=== PATIENT | female | born 1950 | race Caucasian/White ===

== ENCOUNTER 2023-07-18 15:54 | Outpatient (OUT) | payer MEDICARE, SELFPAY | END 2023-07-18 15:55 | disposition home or self-care (01) | LOC: PST 15:56 | PROVIDERS: PCP Family Medicine; Visit Provider Surgery | DX: Z01.818 Encounter for other preprocedural examination (principal); Z86.010 Personal history of colon polyps ==

== ENCOUNTER 2023-07-25 06:51 | Day surgery (SDC) | payer MEDICARE, SELFPAY ==
[2023-07-25 07:11] VITALS: BP 136/95; PULSE 102; RESP 20; TEMP 36; O2SAT 95; BMI 30.7
[2023-07-25] MEDS: LACTATED RINGER'S SOLUTION 1,000 ML 50 ML IV (07:19)
--- NOTE | 2023-07-25 07:56 | P.GSPRC_ITS ---
Date of procedure: 07/25/23 Indications for Procedure: history of colon polyps; last colonoscopy five years ago Pre-op diagnosis: history of colon polyps Post-op diagnosis: other (colon polyp ?2 cecum 5-6 mm; colon polyp rectosigmoid junction 5 mm; diverticulosis sigmoid, descending, transverse colon multiple small and large) Procedure: colonoscopy with hot snare polyps cecum ?2 and rectosigmoid junction times one Findings: colon polyps Diverticulosis Anesthesia: MAC Surgeon: Rashaun Nance Procedure Summary: PROCEDURE: The patient was taken to the Endoscopy Suite, placed in the left lateral recumbent position, given IV sedation as above. A rectal digital exam was performed. The sphincter tone was found to be normal. No rectal masses were appreciated. The Olympus video colonoscope was advanced under direct visualization to the rectum, sigmoid colon, descending colon, transverse colon and ascending colon to the ileocecal valve.in the cecum were two small polyps 5- 7 mm which were snared with hot snare and retrieved and hemostasis was maintained. Appendiceal lumen was visualized. The underside of the valve was seen. The scope was slowly withdrawn with air being desufflated as it was withdrawn. diverticulosis was noted throughout the transverse descending and sigmoid colon withsmall and large diverticuli. The prep was excellent. She also had a small polyp in the rectosigmoid region 5 mm which was hot snared and retrieved and hemostasis maintained and the scope was retroflexed on itself and everything was normal. No gross tumors were seen. The patient tolerated the procedure well and went to the Recovery Area in satisfactory condition. if these polyps are tubular adenomas I would recommend surveillance colonoscopy in five years if patient wishes even though she would be [age] years of age. Estimated blood loss (mL): 0 Pathology: other (ascending colon polyps; rectosigmoid colon polyp) Condition: stable Disposition: PACU
[2023-07-25 08:30] VITALS: BP 89/43; PULSE 74; RESP 14; TEMP 36.2; O2SAT 99
[2023-07-25 08:45] VITALS: BP 100/60; PULSE 73; RESP 16; O2SAT 96
[2023-07-25 09:00] VITALS: BP 127/71; PULSE 78; RESP 18; O2SAT 95
== END 2023-07-25 09:10 | disposition home or self-care (01) ==
PROVIDERS: PCP Family Medicine; Visit Provider Surgery
PROC: (CPT 45385; principal; 2023-07-25 07:50)
DX: Z86.010 Personal history of colon polyps (principal); D12.8 Benign neoplasm of rectum; K63.5 Polyp of colon; J45.909 Unspecified asthma, uncomplicated; F41.9 Anxiety disorder, unspecified; E78.5 Hyperlipidemia, unspecified; I10 Essential (primary) hypertension; Z79.82 Long term (current) use of aspirin; Z79.899 Other long term (current) drug therapy; K57.30 Diverticulosis of large intestine without perforation or abscess without bleeding; E66.01 Morbid (severe) obesity due to excess calories; Z68.31 Body mass index [BMI] 31.0-31.9, adult
CPT/HCPCS: 45385; 88305; J2704